=== PATIENT | female | born 1985 | race Two or more races ===

== ENCOUNTER 2017-06-25 20:06 | Emergency (ER) | payer MEDICAID, OTHER ==
[~2017-06-25] VITALS: Ht 172.7 cm; Wt 76.7 kg
[2017-06-25 20:58] VITALS: BP 98/63
[2017-06-25 21:31] LABS: Urine Bilirubin Negative (Negative); Urine Blood Negative /uL (Negative); Urine Color Yellow (Yellow); Urine Glucose Normal (Normal); Urine Ketone Negative (Negative); Urine Mucus FEW (None Seen); Urine Nitrite Negative (Negative); Urine RBC 1 /hpf (0 - 4); Urine Squamous Epithelial Cell FEW /hpf (<5)
[2017-06-25 21:31] LABS: Basophils # (auto) 0.1 uL; Basophils % (auto) 1.1 % (0.0-2.0); Eosinophils # (auto) 0.9 uL; Eosinophils % (auto) 10.9 % (0.0-7.0); Hematocrit 41.5 % (36.0-46.0); Hemoglobin 13.9 g/dL (12.2-16.2); Lymphocytes # (auto) 2.1 uL; Lymphocytes % (auto) 24.6 % (10.0-50.0); Mean Corpuscular Hemoglobin 29.7 pg (28.0-32.0); Mean Corpuscular Hgb Conc. 33.4 g/dL (32.0-36.0); Mean Platelet Volume 9.2 fL (6.9-10.8); Monocytes # (auto) 0.6 uL; Monocytes % (auto) 7.4 % (0.0-12.0); Neutrophils # (auto) 4.8 uL; Nucleated Red Blood Cells % 0.1 %; Platelet Count (auto) 213 10^3/uL (140-450); Red Cell Distribution Width 13.9 % (11.8-14.3); White Blood Cell 8.5 10^3/uL (4.4-10.8)
[2017-06-25 21:49] LABS: Albumin 3.5 g/dL (3.4-5.0); BUN/Creatinine Ratio 15.1; Calcium 8.5 mg/dL (8.5-10.1); Potassium 4.9 mmol/L (3.5-5.1)
[2017-06-25 21:52] LABS: Bilirubin, Total 0.3 mg/dL (0.2-1.0); Total Protein 6.7 g/dL (6.4-8.2)
== END 2017-06-26 04:21 | disposition left against medical advice (07) ==
LOC: ER 20:21
DX: R10.31 Right lower quadrant pain (principal); Z53.21 Procedure and treatment not carried out due to patient leaving prior to being seen by health care provider
CPT/HCPCS: 36415; 80053; 81001; 82150; 83690; 84702; 85025

== ENCOUNTER 2018-07-23 17:17 | Emergency (ER) | payer MEDICAID ==
[~2018-07-23] VITALS: Ht 167.6 cm; Wt 77.1 kg
[2018-07-23] MEDS ORDERED: HYDROmorphone HCL 2 MG/ML VL IM ONE (17:45)
[2018-07-23] MEDS ORDERED: ONDANSETRON HCL 4 MG/2 ML VIAL IM ONE (17:45)
[2018-07-23 22:25] VITALS: BP 110/51
== END 2018-07-23 22:51 | disposition home or self-care (01) ==
LOC: EDUNIT# 17:17 → EDBD 17:17 → ER 17:20
DX: M79.7 Fibromyalgia (principal); F17.210 Nicotine dependence, cigarettes, uncomplicated; Z90.89 Acquired absence of other organs; Z88.1 Allergy status to other antibiotic agents; Z88.6 Allergy status to analgesic agent
CPT/HCPCS: 93005; 96372; 99284; J1170; J2405

== ENCOUNTER 2019-09-20 07:46 | Emergency (ER) | payer MEDICAID ==
[~2019-09-20] VITALS: Ht 172.7 cm; Wt 79.4 kg
[2019-09-20] MEDS ORDERED: SODIUM CHLORIDE 0.9% 1,000 ML IVB ONE (08:04)
[2019-09-20] MEDS ORDERED: ONDANSETRON HCL 4 MG/2 ML VIAL IV ONE (08:15)
[2019-09-20 09:29] LABS: Basophils # (auto) 0.1 uL; Basophils % (auto) 0.5 % (0.0-2.0); Eosinophils # (auto) 0.1 uL; Eosinophils % (auto) 0.8 % (0.0-7.0); Hematocrit 42.9 % (36.0-46.0); Hemoglobin 14.5 g/dL (12.2-16.2); Lymphocytes # (auto) 1.5 uL; Lymphocytes % (auto) 14.2 % (10.0-50.0); Mean Corpuscular Hemoglobin 29.3 pg (28.0-32.0); Mean Corpuscular Hgb Conc. 33.8 g/dL (32.0-36.0); Mean Corpuscular Volume 86.9 fL (80.0-100.0); Monocytes # (auto) 0.8 uL; Monocytes % (auto) 7.3 % (0.0-12.0); Neutrophils % (auto) 77.2 % (37.0-80.0); Platelet Count (auto) 289 10^3/uL (140-450); Red Blood Cells 4.94 10^6/uL (4.0-5.20); Red Cell Distribution Width 14.3 % (11.8-14.3); White Blood Cell 10.4 10^3/uL (4.4-10.8)
[2019-09-20 09:47] LABS: Albumin 4.2 g/dL (3.4-5.0); Calcium 9.9 mg/dL (8.5-10.1); Potassium 3.5 mmol/L (3.5-5.1)
[2019-09-20 09:50] LABS: BUN/Creatinine Ratio 15.2; Bilirubin, Total 0.4 mg/dL (0.2-1.0); Total Protein 8.5 g/dL (6.4-8.2)
[2019-09-20 09:57] LABS: Urine Bacteria NONE SEEN /hpf (None Seen); Urine Blood TRACE /uL (Negative); Urine Mucus MODERATE (None Seen); Urine Specific Gravity 1.032 (1.001-1.035); Urine WBC 3 /hpf (0 - 5)
[2019-09-20] MEDS ORDERED: PROMETHAZINE HCL 25 MG/ML 1ML IV ONE (11:15)
[2019-09-20] MEDS ORDERED: LORazepam 2MG/ML-1ML VIAL IV ONE (11:15)
[2019-09-20 13:47] VITALS: BP 104/67
== END 2019-09-20 14:26 | disposition home or self-care (01) ==
LOC: ER 07:51
DX: F41.9 Anxiety disorder, unspecified (principal); E86.0 Dehydration; F17.210 Nicotine dependence, cigarettes, uncomplicated; Z90.49 Acquired absence of other specified parts of digestive tract; Z90.89 Acquired absence of other organs; Z88.1 Allergy status to other antibiotic agents
CPT/HCPCS: 36415; 74176; 80053; 81001; 81025; 83690; 85025; 96360; 96374; 96375; 99284; J2060; J2405; J2550; J7030

== ENCOUNTER 2020-12-14 13:46 | Inpatient (IN) | payer MEDICAID ==
[~2020-12-14] VITALS: Ht 172.7 cm; Wt 106.6 kg
[2020-12-14] MEDS ORDERED: SODIUM CHLORIDE 0.9% 1,000 ML IVB ONE (14:45)
[2020-12-14] MEDS ORDERED: ONDANSETRON HCL 4 MG/2 ML VIAL IV ONE ×2 (14:45→20:00)
[2020-12-14] MEDS ORDERED: MORPHINE SULFATE 4 MG/ML SYR/VIAL IV ONE (14:45)
[2020-12-14 15:39] LABS: Basophils # (auto) 0 10 ^3/uL (0-0.2); Eosinophils # (auto) 0.2 10 ^3/uL (0-0.8); Lymphocytes # (auto) 1.9 10 ^3/uL (0.4-5.4); Monocytes # (auto) 0.8 10 ^3/uL (0-1.3)
[2020-12-14 15:41] LABS: Basophils % (auto) 0.4 % (0.0-2.0); Eosinophils % (auto) 2.2 % (0.0-7.0); Hematocrit 36.7 % (36.0-46.0); Hemoglobin 12.3 g/dL (12.2-16.2); Lymphocytes % (auto) 23.3 % (10.0-50.0); Mean Corpuscular Hemoglobin 26.5 pg (28.0-32.0); Mean Corpuscular Hgb Conc. 33.6 g/dL (32.0-36.0); Mean Corpuscular Volume 78.9 fL (80.0-100.0); Monocytes % (auto) 9.8 % (0.0-12.0); Neutrophils # (auto) 5.2 10 ^3/uL (1.6-8.6); Neutrophils % (auto) 64.3 % (37.0-80.0); Nucleated Red Blood Cells % 0.2 %; Platelet Count (auto) 260 10^3/uL (140-450); Red Blood Cells 4.65 10^6/uL (4.0-5.20); Red Cell Distribution Width 16.1 % (11.8-14.3)
[2020-12-14 15:56] LABS: Albumin 3.6 g/dL (3.4-5.0); BUN/Creatinine Ratio 12.2; Calcium 8.7 mg/dL (8.5-10.1); Potassium 4.1 mmol/L (3.5-5.1)
[2020-12-14 15:58] LABS: Bilirubin, Total 0.1 mg/dL (0.2-1.0); Total Protein 7.6 g/dL (6.4-8.2)
[2020-12-14 16:57] LABS: Urine Bacteria NONE SEEN /hpf (None Seen); Urine Blood Negative /uL (Negative); Urine Mucus MODERATE (None Seen); Urine Specific Gravity 1.038 (1.001-1.035); Urine WBC 2 /hpf (0 - 5)
[2020-12-14] MEDS ORDERED: cefTRIAXone 1GM/50ML D5W 50 ML IV ONE (19:30)
[2020-12-14] MEDS ORDERED: metroNIDAZOLE 500MG/100ML 100 ML IV ONE (19:30)
[2020-12-14] MEDS ORDERED: MORPHINE SULF INJ 2 MG/ML SYRINGE 1ML IV ONE (20:00)
[2020-12-14] MEDS: levoFLOXacin 500MG 100 ML IV SCH (21:30)
[2020-12-14] MEDS: SODIUM CHLORIDE 0.9% 1,000 ML IV SCH (21:30)
[2020-12-14] MEDS: PROMETHAZINE HCL 25 MG/ML 1ML IV PRN (22:19)
[2020-12-14] MEDS: MORPHINE SULF INJ 2 MG/ML SYRINGE 1ML IV PRN (22:19)
[2020-12-15] VITALS (7 sets, daily range): BP systolic 98–115; BP diastolic 54–73
[2020-12-15] MEDS: MORPHINE SULF INJ 2 MG/ML SYRINGE 1ML IV PRN ×5 (02:27→23:00)
[2020-12-15] MEDS: metroNIDAZOLE 500MG/100ML 100 ML IV SCH ×3 (06:11→23:09)
[2020-12-15] MEDS ORDERED: QUET200T4 PO (07:16)
[2020-12-15] MEDS ORDERED: PRA1C PO (07:16)
[2020-12-15] MEDS ORDERED: PREG50CA PO (07:16)
[2020-12-15] MEDS ORDERED: ESOM40CA39 PO (07:16)
[2020-12-15] MEDS: SODIUM CHLORIDE 0.9% 1,000 ML IV SCH ×3 (09:27→23:11)
[2020-12-15] MEDS: levoFLOXacin 500MG 100 ML IV SCH (09:36)
[2020-12-15] MEDS: PROMETHAZINE HCL 25 MG/ML 1ML IV PRN ×2 (11:20→23:00)
[2020-12-15] MEDS ORDERED: FAMOTIDINE (10MG/ML) 2ML VL IV ONE (14:50)
[2020-12-15] MEDS ORDERED: GLYCOPYRROLATE 0.2 MG/ML 1ML VIAL ONE (14:51)
[2020-12-15] MEDS ORDERED: PROPOFOL 10 MG/ML 20 ML IV ONE (14:51)
[2020-12-15] MEDS ORDERED: LIDOCAINE 2% (LOCAL ANESTH.) PF 5ml SDV ONE (14:51)
[2020-12-15] MEDS ORDERED: MIDAZOLAM HCL 1MG/1ML-2 ML VIAL ONE (14:51)
[2020-12-15] MEDS ORDERED: ONDANSETRON HCL 4 MG/2 ML VIAL ONE (14:51)
[2020-12-15] MEDS ORDERED: fentaNYL CITRATE 100 MCG/2 ML VL ONE (15:00)
[2020-12-15] MEDS ORDERED: HYDROmorphone HCL 2 MG/ML VL IV PRN (15:15)
[2020-12-15] MEDS ORDERED: ONDANSETRON HCL 4 MG/2 ML VIAL IV PRN (15:15)
[2020-12-15] MEDS ORDERED: GASTROGRAFIN 120 ML SOL ONE (16:13)
[2020-12-15] MEDS: SUCRALFATE 1 GM/10 ML ORAL SUSP PO SCH (17:00)
[2020-12-15] MEDS ORDERED: PRAZOSIN HCL 1 MG CAP PO SCH (22:00)
[2020-12-15] MEDS ORDERED: PANTOPRAZOLE 40 MG/10 ML VIAL INJ IV SCH (22:00)
[2020-12-15] MEDS ORDERED: QUEtiapine FUMARATE 100 MG TAB PO ONE ×2 (22:00→22:30)
[2020-12-15] MEDS: ESOMEPRAZOLE 40 MG/5ml VIAL INJ IV SCH (23:09)
[2020-12-15] MEDS: QUEtiapine FUMARATE 100 MG TAB PO SCH (23:10)
[2020-12-15] MEDS: PREGABALIN 25 MG CAP PO SCH (23:11)
[2020-12-16] MEDS: MORPHINE SULF INJ 2 MG/ML SYRINGE 1ML IV PRN ×4 (01:43→10:44)
[2020-12-16] MEDS: PROMETHAZINE HCL 25 MG/ML 1ML IV PRN (01:44)
[2020-12-16 05:00] VITALS: BP 108/65
[2020-12-16] MEDS: SUCRALFATE 1 GM/10 ML ORAL SUSP PO SCH (05:35)
[2020-12-16] MEDS: metroNIDAZOLE 500MG/100ML 100 ML IV SCH (05:35)
[2020-12-16 06:13] LABS: Basophils # (auto) 0 10 ^3/uL (0-0.2); Basophils % (auto) 0.6 % (0.0-2.0); Eosinophils # (auto) 0.2 10 ^3/uL (0-0.8); Hemoglobin 11.1 g/dL (12.2-16.2); Lymphocytes # (auto) 1.7 10 ^3/uL (0.4-5.4); Mean Corpuscular Hemoglobin 26.3 pg (28.0-32.0); Monocytes # (auto) 0.5 10 ^3/uL (0-1.3); Nucleated Red Blood Cells % 0.1 %; Red Blood Cells 4.21 10^6/uL (4.0-5.20); White Blood Cell 5.4 10^3/uL (4.4-10.8)
[2020-12-16 06:15] LABS: Eosinophils % (auto) 3.4 % (0.0-7.0); Hematocrit 32.8 % (36.0-46.0); Lymphocytes % (auto) 32.3 % (10.0-50.0); Mean Corpuscular Hgb Conc. 33.8 g/dL (32.0-36.0); Mean Corpuscular Volume 77.9 fL (80.0-100.0); Monocytes % (auto) 8.8 % (0.0-12.0); Neutrophils % (auto) 54.9 % (37.0-80.0); Platelet Count (auto) 248 10^3/uL (140-450); Red Cell Distribution Width 16.4 % (11.8-14.3)
[2020-12-16 06:28] LABS: BUN/Creatinine Ratio 7.2; Calcium 8.8 mg/dL (8.5-10.1); Potassium 3.7 mmol/L (3.5-5.1)
[2020-12-16] MEDS: QUEtiapine FUMARATE 100 MG TAB PO SCH (10:00)
[2020-12-16] MEDS: ESOMEPRAZOLE 40 MG/5ml VIAL INJ IV SCH (10:00)
[2020-12-16] MEDS: levoFLOXacin 500MG 100 ML IV SCH (10:14)
[2020-12-16] MEDS: PREGABALIN 25 MG CAP PO SCH (10:14)
[2020-12-16] MEDS ORDERED: DULoxetine HCL 30 MG CAP PO SCH (10:30)
[2020-12-16] MEDS ORDERED: METR500T PO (13:25)
[2020-12-16 13:27] VITALS: BP 100/59
== END 2020-12-16 14:00 | disposition home or self-care (01) | DRG 241 ==
LOC: ER 13:46 → OVERFLOW 13:47 → CENTRAL 23:44
PROVIDERS: ADMIT Internal Medicine; ATTEND Internal Medicine
PROC: 0DB78ZX Excision of Stomach, Pylorus, Via Natural or Artificial Opening Endoscopic, Diagnostic (ICD-10-PCS; 2020-12-15)
PROC: 0DB98ZX Excision of Duodenum, Via Natural or Artificial Opening Endoscopic, Diagnostic (ICD-10-PCS; principal; 2020-12-15 14:51)
DX: K29.70 Gastritis, unspecified, without bleeding (principal); Z20.822 Contact with and (suspected) exposure to COVID-19; K44.9 Diaphragmatic hernia without obstruction or gangrene; A08.4 Viral intestinal infection, unspecified; F17.210 Nicotine dependence, cigarettes, uncomplicated; F41.9 Anxiety disorder, unspecified; K31.3 Pylorospasm, not elsewhere classified; Z79.899 Other long term (current) drug therapy; Z90.49 Acquired absence of other specified parts of digestive tract; Z88.8 Allergy status to other drugs, medicaments and biological substances; Z82.5 Family history of asthma and other chronic lower respiratory diseases; Z83.3 Family history of diabetes mellitus; Z87.442 Personal history of urinary calculi
CPT/HCPCS: 36415; 74018; 74176; 74250; 76705; 80048; 80053; 81001; 81025; 83690; 85025; 87426; 96365; 96368; 96375; 96376; G0378; J0696; J1956; J2001; J2250; J2405; J2704; J3490

== ENCOUNTER 2022-04-05 14:15 | Emergency (ER) | payer MEDICAID ==
[~2022-04-05] VITALS: Ht 172.7 cm; Wt 95.7 kg
[~2022-04-05 14:15] MED LIST: ESOM40CA39 PO; METR500T PO; PRA1C PO; PREG50CA PO; QUET200T4 PO
[2022-04-05 15:30] VITALS: BP 109/71
[2022-04-05] MEDS ORDERED: KETOROLAC TROMETH 60MG/2ML VIAL IM ONE (16:30)
[2022-04-05] MEDS ORDERED: INDO50SU RE (16:40)
[2022-04-05] MEDS ORDERED: CEPH-509 PO (16:40)
== END 2022-04-05 16:48 | disposition home or self-care (01) ==
LOC: ER 14:15
DX: M79.642 Pain in left hand (principal); B99.8 Other infectious disease; F17.210 Nicotine dependence, cigarettes, uncomplicated; F12.10 Cannabis abuse, uncomplicated; Z87.442 Personal history of urinary calculi; Z88.1 Allergy status to other antibiotic agents
CPT/HCPCS: 93971; 96372; 99284; J1885

== ENCOUNTER 2023-02-17 15:42 | Inpatient (IN) | payer MEDICAID ==
[~2023-02-17] VITALS: Ht 172.7 cm; Wt 103.5 kg
[~2023-02-17 15:42] MED LIST changes: +CEPH-509 PO; +INDO50SU RE
[2023-02-17 16:20] LABS: Basophils # (auto) 0.1 10 ^3/uL (0-0.2); Eosinophils # (auto) 0.6 10 ^3/uL (0-0.8); Monocytes # (auto) 0.9 10 ^3/uL (0-1.3); Neutrophils # (auto) 6.8 10 ^3/uL (1.6-8.6)
[2023-02-17 16:22] LABS: Basophils % (auto) 0.9 % (0.0-2.0); Eosinophils % (auto) 5.6 % (0.0-7.0); Hematocrit 37.9 % (36.0-46.0); Hemoglobin 12.2 g/dL (12.2-16.2); Lymphocytes # (auto) 2.9 10 ^3/uL (0.4-5.4); Mean Corpuscular Hemoglobin 24.2 pg (28.0-32.0); Mean Corpuscular Hgb Conc. 32.1 g/dL (32.0-36.0); Mean Corpuscular Volume 75.4 fL (80.0-100.0); Monocytes % (auto) 7.6 % (0.0-12.0); Neutrophils % (auto) 59.9 % (37.0-80.0); Red Blood Cells 5.02 10^6/uL (4.0-5.20); Red Cell Distribution Width 18.1 % (11.8-14.3); White Blood Cell 11.3 10^3/uL (4.4-10.8)
[2023-02-17 16:43] LABS: Albumin 3.9 g/dL (3.4-5.0); Anion Gap 2 (5-15); Blood Alcohol < 3.0 mg/dL (0-5); Blood Urea Nitrogen 9 mg/dL (7-18); Calcium 8.8 mg/dL (8.5-10.1); Carbon Dioxide 22 mmol/L (21-32); Chloride 110 mmol/L (98-107); Glucose 99 mg/dL (74-106); Magnesium 2.2 mg/dL (1.6-2.6); Potassium 4.1 mmol/L (3.5-5.1); Sodium 134 mmol/L (136-145)
[2023-02-17 16:45] LABS: INR 0.97 (0.9-1.15); Partial Thromboplastin Time 26.8 sec (24.6-33.4)
[2023-02-17 16:47] LABS: Alanine Aminotransferase 21 U/L (13-56); Alkaline Phosphatase 97 U/L (45-117); Aspartate Aminotransferase 12 U/L (15-37); BUN/Creatinine Ratio 9.5 (10.0-20.0); Bilirubin, Total 0.4 mg/dL (0.2-1.0); GFR African American 84 mL/min; GFR Non-African American 70 mL/min; Total Protein 7.4 g/dL (6.4-8.2)
[2023-02-17] MEDS ORDERED: MORPHINE SULFATE 4 MG/ML SYR/VIAL IV ONE ×2 (18:45→22:00)
[2023-02-17] MEDS ORDERED: ONDANSETRON HCL 4 MG/2 ML VIAL IV ONE ×2 (18:45→22:00)
[2023-02-17 19:31] LABS: Urine Bacteria FEW /hpf (None Seen); Urine Blood Negative /uL (Negative); Urine Mucus FEW (None Seen); Urine Specific Gravity 1.013 (1.001-1.035); Urine WBC 2 /hpf (0 - 5)
[2023-02-17 19:44] LABS: Alcohol, Urine < 3.0 mg/dL (0-10); Amphetamine Screen, Urine NEGATIVE (NEGATIVE); Barbiturate Scree,Urine NEGATIVE (NEGATIVE); Benzodiazephine Screen, Urine NEGATIVE (NEGATIVE); Cannabinoid Screen, Urine POSITIVE (NEGATIVE); Cocaine Screen, Urine NEGATIVE (NEGATIVE); Opiate Scree,Urine POSITIVE (NEGATIVE); Phencyclidine Screen, Urine NEGATIVE (NEGATIVE)
[2023-02-17] MEDS ORDERED: ACETAMINOPHEN 325 MG TAB PO PRN (22:30)
[2023-02-17] MEDS ORDERED: HYDROcodone-ACET 5/325MG TAB PO PRN (22:30)
[2023-02-17] MEDS ORDERED: NITROGLYCERIN 0.4 MG SL TAB SL PRN (22:30)
[2023-02-17] MEDS ORDERED: MECLIZINE HCL 25 MG TAB PO PRN (22:30)
[2023-02-17] MEDS: SODIUM CHLORIDE 0.9% 1,000 ML IV SCH (23:12)
[2023-02-18 05:18] LABS: Basophils # (auto) 0.1 10 ^3/uL (0-0.2); Basophils % (auto) 0.8 % (0.0-2.0); Lymphocytes # (auto) 3.2 10 ^3/uL (0.4-5.4); Mean Corpuscular Hgb Conc. 32.6 g/dL (32.0-36.0)
[2023-02-18 05:21] LABS: Eosinophils # (auto) 0.6 10 ^3/uL (0-0.8); Eosinophils % (auto) 6.4 % (0.0-7.0); Hematocrit 34.7 % (36.0-46.0); Hemoglobin 11.3 g/dL (12.2-16.2); Lymphocytes % (auto) 34.8 % (10.0-50.0); Mean Corpuscular Hemoglobin 24.5 pg (28.0-32.0); Mean Corpuscular Volume 75.2 fL (80.0-100.0); Monocytes # (auto) 0.9 10 ^3/uL (0-1.3); Monocytes % (auto) 9.4 % (0.0-12.0); Neutrophils # (auto) 4.5 10 ^3/uL (1.6-8.6); Neutrophils % (auto) 48.6 % (37.0-80.0); Nucleated Red Blood Cells % 0.2 %; Red Blood Cells 4.62 10^6/uL (4.0-5.20); Red Cell Distribution Width 18.1 % (11.8-14.3); White Blood Cell 9.3 10^3/uL (4.4-10.8)
[2023-02-18 05:38] LABS: Albumin 3.1 g/dL (3.4-5.0); Potassium 3.9 mmol/L (3.5-5.1)
[2023-02-18 05:42] LABS: Bilirubin, Total 0.3 mg/dL (0.2-1.0); Calcium 8.4 mg/dL (8.5-10.1); Total Protein 6.3 g/dL (6.4-8.2)
[2023-02-18] MEDS ORDERED: INDOMETHACIN 50 MG PR SCH (06:00)
[2023-02-18] MEDS: SODIUM CHLORIDE 0.9% 1,000 ML IV SCH ×2 (08:30→18:33)
[2023-02-18] MEDS ORDERED: HYDROcodone-ACET 10/325MG TAB PO PRN ×2 (09:45→10:15)
[2023-02-18] MEDS ORDERED: LORazepam 2MG/ML-1ML VIAL IV PRN (09:45)
[2023-02-18] MEDS: ONDANSETRON HCL 4 MG/2 ML VIAL IV PRN ×2 (10:14→18:12)
[2023-02-18] MEDS: PREGABALIN 25 MG CAP PO SCH ×2 (11:59→22:32)
[2023-02-18] MEDS: ENOXAPARIN SOD 40 MG/0.4 ML SYRINGE SC SCH (11:59)
[2023-02-18] MEDS: METOCLOPRAMIDE HCL 5MG/ml INJ 2ml VIAL IV PRN ×2 (13:44→20:26)
[2023-02-18] MEDS ORDERED: SUMAtriptan SUCCINATE 25 MG TAB PO PRN (15:00)
[2023-02-18] MEDS ORDERED: PRAZOSIN HCL 1 MG CAP PO SCH (18:00)
[2023-02-18] MEDS: MORPHINE SULFATE INJ 2 MG/ml SYRG IV PRN (20:34)
[2023-02-18] MEDS ORDERED: QUEtiapine FUMARATE 100 MG TAB PO SCH (22:00)
[2023-02-19] VITALS (7 sets, daily range): BP systolic 92–122; BP diastolic 50–78
[2023-02-19] MEDS: ONDANSETRON HCL 4 MG/2 ML VIAL IV PRN ×2 (00:43→07:10)
[2023-02-19] MEDS: SODIUM CHLORIDE 0.9% 1,000 ML IV SCH (04:37)
[2023-02-19] MEDS: MORPHINE SULFATE INJ 2 MG/ml SYRG IV PRN (07:01)
[2023-02-19] MEDS: ENOXAPARIN SOD 40 MG/0.4 ML SYRINGE SC SCH (09:42)
[2023-02-19] MEDS: PREGABALIN 25 MG CAP PO SCH (10:00)
[2023-02-19] MEDS ORDERED: FAMOTIDINE (10MG/ML) 2ML VL IV ONE (11:45)
[2023-02-19] MEDS ORDERED: IBUPROFEN 800 MG TAB PO PRN (11:45)
[2023-02-19] MEDS ORDERED: FAMOTIDINE (10MG/ML) 2ML VL IV SCH (14:00)
== END 2023-02-19 15:03 | disposition home or self-care (01) | DRG 207 ==
LOC: ER 15:42 → EDBD 15:42 → TELE 22:34 → TELE-WESTW 02-18 22:46
PROVIDERS: ADMIT Nurse Practitioner Family; ATTEND Hospitalist
DX: I95.2 Hypotension due to drugs (principal); G93.41 Metabolic encephalopathy; F17.210 Nicotine dependence, cigarettes, uncomplicated; I10 Essential (primary) hypertension; F41.9 Anxiety disorder, unspecified; Z88.1 Allergy status to other antibiotic agents; Z87.442 Personal history of urinary calculi; Z91.81 History of falling; Z83.3 Family history of diabetes mellitus; Z82.49 Family history of ischemic heart disease and other diseases of the circulatory system; Z82.5 Family history of asthma and other chronic lower respiratory diseases; Z88.8 Allergy status to other drugs, medicaments and biological substances
CPT/HCPCS: 36415; 70450; 70551; 71045; 72125; 80053; 80307; 80320; 81001; 83735; 84702; 85025; 85610; 85730; 93005; 93306; 93886; 95819; 96374; 96375; 96376; G0378; J2405

== ENCOUNTER 2023-08-27 16:37 | Emergency (ER) | payer MEDICAID ==
[~2023-08-27] VITALS: Ht 170.2 cm; Wt 81.8 kg
[~2023-08-27 16:37] MED LIST changes: -CEPH-509 PO; -INDO50SU RE; -METR500T PO; -PRA1C PO
[2023-08-27] MEDS ORDERED: SODIUM CHLORIDE 0.9% 1,000 ML IVB ONE (18:15)
[2023-08-27 18:35] VITALS: BP 136/80; PULSE 92; RESP 18; O2SAT 98
[2023-08-27 19:38] LABS: Basophils # (auto) 0.1 10 ^3/uL (0-0.2); Eosinophils # (auto) 0.1 10 ^3/uL (0-0.8); Eosinophils % (auto) 1.1 % (0.0-7.0); Hemoglobin 13.3 g/dL (12.2-16.2); Mean Corpuscular Hemoglobin 25.4 pg (28.0-32.0); White Blood Cell 12.7 10^3/uL (4.4-10.8)
[2023-08-27 19:39] LABS: Basophils % (auto) 0.5 % (0.0-2.0); Hematocrit 41.5 % (36.0-46.0); Lymphocytes # (auto) 2.5 10 ^3/uL (0.4-5.4); Lymphocytes % (auto) 19.9 % (10.0-50.0); Mean Corpuscular Volume 79.4 fL (80.0-100.0); Monocytes # (auto) 0.9 10 ^3/uL (0-1.3); Monocytes % (auto) 7.2 % (0.0-12.0); Neutrophils # (auto) 9.1 10 ^3/uL (1.6-8.6); Neutrophils % (auto) 71.3 % (37.0-80.0); Nucleated Red Blood Cells % 0.1 %; Red Blood Cells 5.22 10^6/uL (4.0-5.20); Red Cell Distribution Width 17.5 % (11.8-14.3)
[2023-08-27 19:58] LABS: Anion Gap 8 (5-15); Magnesium 2.2 mg/dL (1.6-2.6)
[2023-08-27 20:11] LABS: Alanine Aminotransferase 11 U/L (7-40); Albumin 4.6 g/dL (3.2-4.8); Alkaline Phosphatase 100 U/L (46-116); Aspartate Aminotransferase 13 U/L (13-40); BUN/Creatinine Ratio 6.6 (10.0-20.0); Bilirubin, Total 0.5 mg/dL (0.2-1.0); Blood Alcohol < 3.0 mg/dL (<10); Blood Urea Nitrogen < 5 mg/dL (9-23); Calcium 9.7 mg/dL (8.7-10.4); Carbon Dioxide 20 mmol/L (20-30); Chloride 108 mmol/L (98-107); Glucose 93 mg/dL (74-106); Sodium 136 mmol/L (136-145); Total Protein 7.4 g/dL (5.7-8.2)
[2023-08-28 02:51] LABS: Urine Bacteria FEW /hpf (None Seen); Urine Blood Negative /uL (Negative); Urine Clarity HAZY (Clear); Urine Color Yellow (Yellow); Urine Hyaline Cast FEW /lpf (0 - 2); Urine Mucus FEW (None Seen); Urine Protein, UAD TRACE (Negative); Urine Specific Gravity 1.019 (1.001-1.035); Urine Urobilinogen Normal (Negative); Urine WBC 3 /hpf (0 - 5); Urine pH 5.5 (5.0-8.0)
[2023-08-28 03:28] LABS: Amphetamine Screen, Urine Pos (NEGATIVE)
[2023-08-28 03:30] LABS: Barbiturate Scree,Urine Neg (NEGATIVE); Benzodiazephine Screen, Urine Neg (NEGATIVE); Cannabinoid Screen, Urine Pos (NEGATIVE); Cocaine Screen, Urine Neg (NEGATIVE); Opiate Scree,Urine Neg (NEGATIVE); Phencyclidine Screen, Urine Neg (NEGATIVE)
[2023-08-29] MEDS ORDERED: MORPHINE SULFATE INJ 2 MG/ml SYRG ONE (00:49)
== END 2023-08-27 23:27 | disposition left against medical advice (07) ==
LOC: ER 16:37 → EDBD 16:37 → EDUNIT# 16:37 → ER 23:27
DX: F12.10 Cannabis abuse, uncomplicated (principal); R10.2 Pelvic and perineal pain; R40.4 Transient alteration of awareness; F41.9 Anxiety disorder, unspecified; F17.210 Nicotine dependence, cigarettes, uncomplicated; Z87.442 Personal history of urinary calculi; Z98.890 Other specified postprocedural states; Z88.8 Allergy status to other drugs, medicaments and biological substances; Z79.899 Other long term (current) drug therapy
CPT/HCPCS: 36415; 70450; 80053; 80307; 80320; 81001; 83735; 84702; 85025